=== PATIENT | male | born 1945 | race Caucasian/White ===

== ENCOUNTER 2017-06-16 09:04 | Outpatient (CLI) | payer MEDICARE, OTHER | END 2017-06-16 09:05 | disposition home or self-care (01) | LOC: CP 09:04 | PROVIDERS: ATTEND Family Medicine | DX: J44.9 Chronic obstructive pulmonary disease, unspecified (principal) | CPT/HCPCS: 94010; 94727; 94729 ==

== ENCOUNTER 2017-07-09 01:19 | Emergency (ER) | payer MEDICARE, OTHER ==
[2017-07-09 01:44] LABS: Bilirubin Negative (Negative); Blood, Urine Negative (Negative); Glucose, Urine (Dipstick) Negative (Negative); Ketone, Urine Negative (Negative); Nitrite Negative (Negative); Protein, Urine (Dipstick) Negative (Neg-Trace); Urobilinogen 0.2 mg/dL (0.2-1.0)
[2017-07-09 02:06] LABS: #Eosinphils 0.3 thou/uL (0.0-0.7); #Lymphocytes 1.4 thou/uL (1.20-3.40); #Monocytes 0.4 thou/uL (0.11-0.59); #Neutrophils 3.7 thou/uL (1.40-6.50); %Basophils 0.8 % (0.0-1.0); %Eosinophils 4.5 % (0.0-10.0); %Lymphocytes 23.4 % (21.0-51.0); %Monocytes 6.9 % (0.0-10.0); Hematocrit 45.2 % (42.0-52.0); Mean Platelet Volume 7.7 fL (7.4-10.4); Red Blood Cell (RBC) Count 5.07 mill/uL (4.70-6.10); White Blood Cell (WBC) Count 5.8 thou/uL (4.8-10.8)
[2017-07-09 02:43] LABS: ALT (SGPT) 25 U/L (8-55); AST (SGOT) 30 U/L (5-34); Alkaline Phosphatase 68 U/L (40-150); Anion Gap 13 mmol/L (10-20); BUN (Urea Nitrogen) 16 mg/dL (8.4-25.7); Bilirubin, Total 0.5 mg/dL (0.2-1.2); Calc. Creatinine Clearance 0 mL/min (70-130); Calcium 9.5 mg/dL (7.8-10.44); Carbon Dioxide 26 mmol/L (23-31); Chloride 104 mmol/L (98-107); Estimated GFR-MDRD 78; Globulin 2.7 g/dL (2.4-3.5); Protein, Total 6.6 g/dL (5.8-8.1)
[2017-07-09] MEDS ORDERED: Amoxicillin/Potassium Clav 875 MG TAB ONE (04:35)
== END 2017-07-09 04:56 | disposition home or self-care (01) ==
LOC: ERS 01:19
DX: N41.9 Inflammatory disease of prostate, unspecified (principal); I10 Essential (primary) hypertension; E78.00 Pure hypercholesterolemia, unspecified; Z79.899 Other long term (current) drug therapy
CPT/HCPCS: 36415; 51702; 80053; 81003; 85025; 99283

== ENCOUNTER 2017-09-09 09:41 | Outpatient (CLI) | payer MEDICARE, OTHER ==
[2017-09-09 10:16] LABS: Anion Gap 12 mmol/L (10-20); BUN (Urea Nitrogen) 14 mg/dL (8.4-25.7); Calc. Creatinine Clearance 0 mL/min (70-130); Carbon Dioxide 27 mmol/L (23-31); Chloride 104 mmol/L (98-107); Estimated GFR-MDRD 84
--- NOTE | 2017-09-09 14:20 | ULT ---
RENAL ULTRASOUND: HISTORY: Prostatic hyperplasia. COMPARISON: None. TECHNIQUE: Sagittal and transverse imaging of the kidneys is performed. FINDINGS: Bilaterally, no hydronephrosis. There is bilateral visual cortical thinning. The right kidney measures 10.9 x 5.5 x 5.4 cm. The left kidney measures 11.2 x 6 x 5.7 cm. The hypoechoic focus in the lower pole of the left kidney, measuring 1.2 x 0.9 x 0.8 cm, is incomplet carolin evaluated. Pre-void bladder volume is 140 cubic centimeters. Post-void volume is 12 cubic centimeters. Prostate gland is poorly defined. The entire prostate gland is not appreciated on the current study. There may be a hypoechoic area involving the superior aspect of the prostate gland, measuring 1.7 x 1.4 x 2.5 cm. IMPRESSION: 1. Hypoechoic focus in the lower pole left kidney, incompletely evaluated. Complex cyst is suspecte d. 2. Minimal post void residual. 3. Limited, incomplete evaluation of the prostate gland. Questionable hypoechoic area involving the superior aspect, as above. POS: [facility]
== END 2017-09-09 09:42 | disposition home or self-care (01) ==
LOC: ULT 09:41
PROVIDERS: ATTEND Urology
DX: N40.1 Benign prostatic hyperplasia with lower urinary tract symptoms (principal); Z87.898 Personal history of other specified conditions
CPT/HCPCS: 76770; 80048

== ENCOUNTER 2017-09-21 07:30 | Outpatient (CLI) | payer MEDICARE, OTHER ==
[2017-09-21 09:06] LABS: Anion Gap 11 mmol/L (10-20); BUN (Urea Nitrogen) 17 mg/dL (8.4-25.7); Calc. Creatinine Clearance 0 mL/min (70-130); Calcium 9.1 mg/dL (7.8-10.44); Carbon Dioxide 29 mmol/L (23-31); Chloride 103 mmol/L (98-107); Estimated GFR-MDRD 89; Glucose 103 mg/dL (83-110); Potassium 4.2 mmol/L (3.5-5.1); Sodium 139 mmol/L (136-145)
[2017-09-21 09:12] LABS: Bilirubin Negative (Negative); Blood, Urine Negative (Negative); Clarity CLEAR (Clear); Glucose, Urine (Dipstick) Negative (Negative); Leukocyte Negative (Negative); Nitrite Negative (Negative); Protein, Urine (Dipstick) Negative (Neg-Trace); Specific Gravity, Urine 1.036 (1.002-1.036); Urobilinogen 0.2 mg/dL (0.2-1.0)
[2017-09-21 09:16] LABS: Bacteria/HPF None Seen HPF (None Seen); Hyaline Casts/LPF 0-3 HYALINE CAST LPF (0-3 Hyaline); RBC/HPF None Seen HPF (0-3); Squamous Epithelial None Seen HPF (0-3); WBC/HPF None Seen HPF (0-3)
--- NOTE | 2017-09-21 10:52 | CT ---
CT ABDOMEN AND PELVIS WITH AND WITHOUT IV CONTRAST: HISTORY: Abnormal renal ultrasound. Renal cyst. FINDINGS: Emphysematous changes and scarring are apparent at the partially visualized lung bases. Calcified gr anulomata within the spleen are consistent with healed granulomatous disease. Cyst within the liver measures up to 2.4 cm in diameter. Each renal collecting system and ureter and urinary bladder are decompressed without stone apparent. Parapelvic cyst of the left kidney measures up to 2.1 cm. Tiny cortical cysts arise from the right kidney. Right parapelvic cyst is 2.4 cm in greatest diameter. The spleen, adrenal glands, and pancreas are within normal limits. There is calcification in the art erial structures. Postoperative changes involve the lumbar spine. Lack of oral contrast limits eval uation of the bowel. There are diverticula arising from the colon without adjacent inflammation. IMPRESSION: 1. Bilateral renal cysts and hepatic cysts. No solid masses are visible. 2. Atherosclerosis. 3. Diverticulosis. POS: [facility]
[2017-09-21] MEDS ORDERED: Iopamidol 370 76% 100 ML VIAL ONE (15:40)
== END 2017-09-21 07:31 | disposition home or self-care (01) ==
LOC: CT 07:30
PROVIDERS: ATTEND Urology
DX: Z12.5 Encounter for screening for malignant neoplasm of prostate (principal); N28.1 Cyst of kidney, acquired; N40.1 Benign prostatic hyperplasia with lower urinary tract symptoms; K76.89 Other specified diseases of liver; I70.90 Unspecified atherosclerosis; K57.90 Diverticulosis of intestine, part unspecified, without perforation or abscess without bleeding
CPT/HCPCS: 74178; 80048; 81001; 87086; G0103; 36415

== ENCOUNTER 2018-10-31 15:40 | Outpatient (CLI) | payer MEDICARE, OTHER ==
--- NOTE | 2018-10-31 16:43 | ULT ---
RENAL SONOGRAM: 10/31/2018 HISTORY: Benign prostatic hyperplasia. Renal cysts. COMPARISON: Renal sonogram on 09/09/2017. CT abdomen and pelvis on 09/21/2017. FINDINGS: The right kidney measures 10.8 cm x 5.2 cm with the left kidney measuring 12.5 cm x 6.1 cm. There is a small anechoic structure, measuring 0.8 cm, in the mid portion of the right kidney, corres ponding to recent CT scan and demonstrating characteristics compatible with a cyst. There are a few anechoic and hypoechoic structures seen within the region of the renal sinus fat bilaterally, most co mpatible with parapelvic renal cysts, seen on prior CT exam, as well as on prior ultrasound exam. Th e largest anechoic structure, in the inferior pole, left kidney, related to parapelvic cyst, measures 1.4 cm, with hypoechoic structure in the central right kidney seen, measuring approximately 2.7 cm. This was shown to also represent parapelvic cyst on recent CT exam. No renal calculi are seen, and there is no hydronephrosis bilaterally. The urinary bladder demonstrates a normal sonographic appearance with a pre-void urinary bladder volu me of 195.8 mL and a post-void urinary bladder volume of 6.9 mL. IMPRESSION: 1. Bilateral parapelvic renal cysts, as well as small cortical cyst right kidney. 2. No evidence of hydronephrosis. 3. No significant post void residual. POS: [facility]
== END 2018-10-31 15:41 | disposition home or self-care (01) ==
LOC: BICULT 15:40
PROVIDERS: ATTEND Urology
DX: N40.1 Benign prostatic hyperplasia with lower urinary tract symptoms (principal); N28.1 Cyst of kidney, acquired; R10.30 Lower abdominal pain, unspecified; R39.198 Other difficulties with micturition; N18.6 End stage renal disease
CPT/HCPCS: 76770; 81001

== ENCOUNTER 2019-08-14 13:23 | Outpatient (CLI) | payer MEDICARE, OTHER ==
--- NOTE | 2019-08-14 14:59 | CT ---
CT pulmonary lung scan without IV contrast INDICATION: Lung cancer screening protocol; history of smoking; 40 years of smoking; quit 9 years ago ; history of prior tobacco use COMPARISON: CT pulmonary lung scan dated October 27, 2016 FINDINGS: LUNGS: Nodules\mass: No suspicious pulmonary nodules are present. There is a calcified granuloma in the righ t lower lobe. Emphysema: There is stable moderate emphysema Additional findings: None. Mediastinum: There are calcified lymph nodes within the mediastinum. There are coronary artery and th oracic aortic calcifications. No enlarged lymph nodes are evident. Upper abdomen: No abnormality. Osseous structures: No acute abnormality. There is scattered degenerative and osteoarthritic change p resent.. IMPRESSION: Lung-RADS Category 1: Negative- Continue annual screening with LDCT in 12 months. Category S: Coronary artery and thoracic aortic calcifications; findings of prior granulomatous disea se. Moderate emphysema. Category C: Not applicable.
== END 2019-08-14 13:24 | disposition home or self-care (01) ==
LOC: CT 13:23
PROVIDERS: ATTEND Family Medicine
DX: Z87.891 Personal history of nicotine dependence (principal); J44.9 Chronic obstructive pulmonary disease, unspecified; J43.9 Emphysema, unspecified; I25.10 Atherosclerotic heart disease of native coronary artery without angina pectoris; I70.0 Atherosclerosis of aorta
CPT/HCPCS: G0297

== ENCOUNTER 2019-09-10 14:18 | Outpatient (CLI) | payer MEDICARE, OTHER | END 2019-09-10 14:19 | disposition home or self-care (01) | LOC: CTENTCT 14:18 | PROVIDERS: ATTEND Student in an Organized Health Care Education/Training Program | DX: J32.9 Chronic sinusitis, unspecified (principal) | CPT/HCPCS: 70486 ==

== ENCOUNTER 2020-08-28 10:28 | Outpatient (CLI) | payer MEDICARE, OTHER ==
--- NOTE | 2020-08-28 12:01 | CT ---
EXAM: CT Pulmonary Lung Scan PROVIDED CLINICAL HISTORY: Personal history tobacco use/nicotine dependence COMPARISON: 08/14/2019 FINDINGS: No suspicious pulmonary nodule is seen within the lungs bilaterally. A calcified granuloma is again s een in the right lower lobe. Emphysematous changes are again seen within the lungs bilaterally. No pleural effusion is seen. Vascular calcifications are again seen in the coronary arteries as well as the thoracic aorta. Calcified mediastinal and right hilar lymph nodes are seen related to prior granulomatous disease. There is a stable hypodense lesion seen in the left hepatic lobe which demonstrated characteristics c ompatible with a cyst on a prior study in 2018. Calcified granulomata are seen in the spleen. There is herniation of a small amount of abdominal fat at the posteromedial left lung base. Degenerative changes are seen in the spine. Multiple Schmorl's nodes are present. IMPRESSION: Lung RADS category 1: Negative-continued annual screening with low-dose CT scan thorax in 12 months. Category S: Evidence of COPD. Coronary artery calcifications.
== END 2020-08-28 10:29 | disposition home or self-care (01) ==
LOC: BICCT 10:28
PROVIDERS: ATTEND Family Medicine
DX: Z12.2 Encounter for screening for malignant neoplasm of respiratory organs (principal); Z87.891 Personal history of nicotine dependence; J44.9 Chronic obstructive pulmonary disease, unspecified; I25.10 Atherosclerotic heart disease of native coronary artery without angina pectoris
CPT/HCPCS: G0297

== ENCOUNTER 2021-09-14 12:32 | Outpatient (CLI) | payer MEDICARE | END 2021-09-14 12:33 | disposition home or self-care (01) | LOC: BICCT 12:32 | PROVIDERS: ATTEND Family Medicine | DX: Z12.2 Encounter for screening for malignant neoplasm of respiratory organs (principal); J44.9 Chronic obstructive pulmonary disease, unspecified; R01.1 Cardiac murmur, unspecified; F17.210 Nicotine dependence, cigarettes, uncomplicated; I08.3 Combined rheumatic disorders of mitral, aortic and tricuspid valves | CPT/HCPCS: 71271; 93306 ==

== ENCOUNTER 2021-11-10 07:59 | Outpatient (CLI) | payer MEDICARE | END 2021-11-10 08:00 | disposition home or self-care (01) | LOC: BICULT 07:59 | PROVIDERS: ATTEND Internal Medicine Cardiovascular Disease | DX: E04.2 Nontoxic multinodular goiter (principal) | CPT/HCPCS: 76536 ==